=== PATIENT | female | born 1995 | race Caucasian/White ===

== ENCOUNTER → 2017-12-09 | Outpatient (CLI) | payer MEDICAID ==
[2017-12-09 08:58] LABS: BASO % 0.3 % (0.0-1.0); HEMATOCRIT 38.2 % (36.0-47.0); HEMOGLOBIN 12.6 g/dl (12.0-16.0); IMMATURE GRANULOCYTE % 0.8 % (0-3.0); LYMPH # 4.3 10^3/uL (1.5-6.5); LYMPH % 26.7 % (24.0-44.0); MEAN CORPUSCULAR HEMOGLOBIN 27.8 pg (27.0-33.0); MEAN CORPUSCULAR VOLUME 84.3 fl (80.0-96.0); NEUTROPHILS # 10.6 10^3/uL (1.8-7.7); NEUTROPHILS % 66.2 % (36.0-66.0); PLATELET COUNT, AUTOMATED 386 10^3/uL (150-450); RED BLOOD COUNT 4.53 10^6/uL (4.00-5.40); RED CELL DISTRIBUTION WIDTH 13.2 % (11.5-14.5); WHITE BLOOD COUNT 15.9 10^3/uL (4.0-10.0)
[2017-12-09 09:49] LABS: ALBUMIN 3.3 GM/DL (3.2-5.2); ALBUMIN/GLOBULIN RATIO 0.87 (1.00-1.93); ALKALINE PHOSPHATASE 82 U/L (45-117); ALT/SGPT 12 U/L (12-78); ANION GAP 11 MEQ/L (8-16); AST/SGOT 14 U/L (7-37); BILIRUBIN,TOTAL 0.4 MG/DL (0.2-1.0); BLOOD UREA NITROGEN 15 MG/DL (7-18); CARBON DIOXIDE LEVEL 24 MEQ/L (21-32); CHLORIDE LEVEL 103 MEQ/L (98-107); CHOLESTEROL LEVEL 200 MG/DL (<200); CHOLESTEROL RISK RATIO 4.347 (<5); CREATININE FOR GFR 0.75 MG/DL (0.55-1.30); GLOMERULAR FILTRATION RATE > 60.0 (>60); GLUCOSE, FASTING 134 MG/DL (70-100); HDL CHOLESTEROL 46 MG/DL (>40); LDL CHOLESTEROL 114.2 MG/DL (<100); NON-HDL-C 154 MG/DL; POTASSIUM SERUM 3.9 MEQ/L (3.5-5.1); SODIUM LEVEL 138 MEQ/L (136-145); THYROID STIMULATING HORMONE 0.516 uIU/ML (0.358-3.740); TOTAL PROTEIN 7.1 GM/DL (6.4-8.2); TRIGLYCERIDES LEVEL 199 MG/DL (<150)
[2017-12-09 10:15] LABS: ESTIMATED AVERAGE GLUCOSE 140 MG/DL (60-110); HEMOGLOBIN A1c 6.5 %
[2017-12-09 11:00] LABS: HIV 1&2 SCREEN CENTAUR NEGATIVE (NEGATIVE)
== END ==
LOC: M LAB 07:59
DX: K52.9 Noninfective gastroenteritis and colitis, unspecified (principal); K30 Functional dyspepsia; Z11.3 Encounter for screening for infections with a predominantly sexual mode of transmission; E11.29 Type 2 diabetes mellitus with other diabetic kidney complication; Z13.220 Encounter for screening for lipoid disorders; K21.9 Gastro-esophageal reflux disease without esophagitis
CPT/HCPCS: 93005

== ENCOUNTER → 2017-12-10 | Outpatient (REF) | payer MEDICAID ==
[2017-12-11 13:06] LABS: CREATININE, URINE 94.9 MG/DL; MALB URINE SIEMENS < 5.0 MG/L; MAU/CREAT RATIO 5.2 MCG/MG (0.0-30.0)
[2017-12-11 14:59] LABS: CHLAMYDIA DNA AMPLIFICATION NEGATIVE (NEGATIVE); GC DNA AMPLIFICATION NEGATIVE (NEGATIVE)
[2017-12-13 00:07] LABS: H PYLORI STOOL ANTIGEN Negative (Negative)
== END ==
LOC: M LAB REF 13:50
DX: E11.29 Type 2 diabetes mellitus with other diabetic kidney complication (principal); Z11.3 Encounter for screening for infections with a predominantly sexual mode of transmission
CPT/HCPCS: 82043

== ENCOUNTER 2018-03-18 12:09 | Inpatient (IN) | payer MEDICAID ==
[2018-03-18] MEDS: PANTOPRAZOLE 40MG INJ (PROTONIX) (C9113) IV (09:00)
[2018-03-18 13:23] LABS: ABG BASE EXCESS -1.5 (-2.0-2.0); ABG HCO3 20.1 MEQ/L (22.0-26.0); ABG O2 SATURATION 98.4 % (95.0-99.0); ABG PARTIAL PRESSURE CO2 26.3 mmHg (35.0-45.0); ABG PARTIAL PRESSURE O2 108.8 mmHg (75.0-100.0); ABG STANDARD HCO3 23.2 MEQ/L (22.0-26.0); ABG TOTAL CO2 20.9 MEQ/L (22.0-29.0); ABG pH (ARTERIAL) 7.502 UNITS (7.350-7.450)
[2018-03-18] MEDS: CHARCOAL ACTIVATED LIQUID 25 GM/120 ML BTL PO ×2 (13:36→21:04)
[2018-03-18] MEDS: NS 1,000 ML IV (13:36)
[2018-03-18 13:39] LABS: BASO % 0.2 % (0.0-1.0); HEMATOCRIT 39.4 % (36.0-47.0); HEMOGLOBIN 13.3 g/dl (12.0-15.5); IMMATURE GRANULOCYTE % 0.6 % (0-3.0); LYMPH # 3.1 10^3/uL (1.5-6.5); LYMPH % 16.6 % (24.0-44.0); MEAN CORPUSCULAR HEMOGLOBIN 27.8 pg (27.0-33.0); MEAN CORPUSCULAR HGB CONC 33.8 g/dl (32.0-36.5); MEAN CORPUSCULAR VOLUME 82.4 fl (80.0-96.0); MONO % 5.6 % (0.0-5.0); NEUTROPHILS # 14.4 10^3/uL (1.8-7.7); PLATELET COUNT, AUTOMATED 408 10^3/uL (150-450); RED BLOOD COUNT 4.78 10^6/uL (4.00-5.40); RED CELL DISTRIBUTION WIDTH 13.2 % (11.5-14.5); WHITE BLOOD COUNT 18.7 10^3/uL (4.0-10.0)
[2018-03-18 13:41] LABS: CONTROL LINE HCG INT CTR LINE PRESENT; HCG, SERUM QUALITATIVE NEGATIVE (NEGATIVE)
[2018-03-18 13:45] LABS: KETONE, URINE AUTO RFX NEGATIVE (NEGATIVE); LEUKOCYTE ESTERASE UR AUTO RFX 1+ (NEGATIVE); MUCUS, URINE RFX SMALL (NEGATIVE); NITRITE, URINE AUTO RFX NEGATIVE (NEGATIVE); RBC, URINE AUTO RFX 4 /HPF (0-3); SPECIFIC GRAVITY UR AUTO RFX 1.017 (1.002-1.035); SQUAM EPITHELIAL CELL UR AURFX 9 /HPF (0-6); WBC, URINE AUTO RFX 7 /HPF (0-3)
[2018-03-18] MEDS: ONDANSETRON 4MG/2ML VIAL (J2405) IV (13:47)
[2018-03-18 13:54] LABS: AMPHETAMINES LEVEL URINE NEGATIVE (NEGATIVE); BARBITURATES URINE NEGATIVE (NEGATIVE); BENZODIAZEPINES URINE NEGATIVE (NEGATIVE); CANNABINOIDS URINE NEGATIVE (NEGATIVE); COCAINE METABOLITE URINE NEGATIVE (NEGATIVE); METHADONE URINE NEGATIVE (NEGATIVE); OPIATES URINE NEGATIVE (NEGATIVE); PHENCYCLIDINE URINE NEGATIVE (NEGATIVE)
[2018-03-18 13:59] LABS: ALBUMIN 3.4 GM/DL (3.2-5.2); ALBUMIN/GLOBULIN RATIO 0.67 (1.00-1.93); ALKALINE PHOSPHATASE 115 U/L (45-117); ALT/SGPT 36 U/L (12-78); ANION GAP 10 MEQ/L (8-16); AST/SGOT 24 U/L (7-37); BILIRUBIN,DIRECT < 0.1 MG/DL (0.0-0.2); BILIRUBIN,TOTAL 0.2 MG/DL (0.2-1.0); BLOOD UREA NITROGEN 10 MG/DL (7-18); CALCIUM LEVEL 9.8 MG/DL (8.5-10.1); CARBON DIOXIDE LEVEL 20 MEQ/L (21-32); CHLORIDE LEVEL 108 MEQ/L (98-107); CPK CREATINE PHOSPHOKINASE 33 U/L (26-192); CREATININE FOR GFR 0.89 MG/DL (0.55-1.30); GLOMERULAR FILTRATION RATE > 60.0 (>60); GLUCOSE, FASTING 97 MG/DL (70-100); SALICYLATE LEVEL 42.4 MG/DL (5.0-30.0); SODIUM LEVEL 138 MEQ/L (136-145); TOTAL PROTEIN 8.5 GM/DL (6.4-8.2)
[2018-03-18 14:02] LABS: ACETAMINOPHEN LEVEL < 2.0 UG/ML (10.0-30.0); ETHYL ALCOHOL (ETHANOL) < 0.003 % (0.000-0.010)
[2018-03-18] MEDS: SODIUM BICARBONATE 8.4% INJ 50 ML SYRINGE IV ×2 (14:27)
[2018-03-18 14:54] LABS: OSMOLALITY SERUM 283 MOSM/KG (275-295)
[2018-03-18] MEDS: SODIUM BICARBONATE 100 MEQ in D5W 1,000 ML IV ×2 (14:55→15:40)
[2018-03-18 14:58] LABS: LACTIC ACID SEPSIS PROTOCOL 3.2 MMOL/L (0.4-2.0)
[2018-03-18 15:31] LABS: APPEARANCE, URINE CLEAR (CLEAR); BACTERIA, URINE AUTO NEGATIVE (NEGATIVE); BILIRUBIN, URINE AUTO NEGATIVE (NEGATIVE); BLOOD, URINE BLOOD 1+ (NEGATIVE); COLOR, URINE STRAW (YELLOW); GLUCOSE, URINE (UA) AUTO NEGATIVE (NEGATIVE); KETONE, URINE AUTO NEGATIVE (NEGATIVE); LEUKOCYTE ESTERASE, URINE AUTO NEGATIVE (NEGATIVE); NITRITE, URINE AUTO NEGATIVE (NEGATIVE); PROTEIN, URINE AUTO NEGATIVE (NEGATIVE); RBC, URINE AUTO 5 /HPF (0-3); SPECIFIC GRAVITY URINE AUTO 1.009 (1.002-1.035); SQUAMOUS EPITHELIAL CELL UR AU 0 /HPF (0-6); UROBILINOGEN, URINE AUTO 0.2 mg/dL (0.0-2.0); WBC, URINE AUTO 1 /HPF (0-3)
[2018-03-18 15:36] LABS: ABG BASE EXCESS -1.5 (-2.0-2.0); ABG HCO3 20.1 MEQ/L (22.0-26.0); ABG O2 SATURATION 98.4 % (95.0-99.0); ABG PARTIAL PRESSURE CO2 25.8 mmHg (35.0-45.0); ABG PARTIAL PRESSURE O2 113.3 mmHg (75.0-100.0); ABG STANDARD HCO3 23.3 MEQ/L (22.0-26.0); ABG TOTAL CO2 20.9 MEQ/L (22.0-29.0)
[2018-03-18 15:49] LABS: ANION GAP 10 MEQ/L (8-16); BLOOD UREA NITROGEN 10 MG/DL (7-18); CALCIUM LEVEL 8.9 MG/DL (8.5-10.1); CARBON DIOXIDE LEVEL 20 MEQ/L (21-32); CHLORIDE LEVEL 113 MEQ/L (98-107); GLOMERULAR FILTRATION RATE > 60.0 (>60); GLUCOSE, FASTING 127 MG/DL (70-100); SODIUM LEVEL 143 MEQ/L (136-145)
[2018-03-18 17:05] LABS: APPEARANCE, URINE CLEAR (CLEAR); BACTERIA, URINE AUTO NEGATIVE (NEGATIVE); BILIRUBIN, URINE AUTO NEGATIVE (NEGATIVE); BLOOD, URINE BLOOD 1+ (NEGATIVE); COLOR, URINE YELLOW (YELLOW); GLUCOSE, URINE (UA) AUTO NEGATIVE (NEGATIVE); KETONE, URINE AUTO NEGATIVE (NEGATIVE); LEUKOCYTE ESTERASE, URINE AUTO NEGATIVE (NEGATIVE); MUCUS, URINE SMALL (NEGATIVE); NITRITE, URINE AUTO NEGATIVE (NEGATIVE); PROTEIN, URINE AUTO NEGATIVE (NEGATIVE); RBC, URINE AUTO 4 /HPF (0-3); SPECIFIC GRAVITY URINE AUTO 1.013 (1.002-1.035); SQUAMOUS EPITHELIAL CELL UR AU 0 /HPF (0-6); UROBILINOGEN, URINE AUTO 0.2 mg/dL (0.0-2.0); WBC, URINE AUTO 2 /HPF (0-3)
[2018-03-18 17:40] LABS: ALBUMIN 3.1 GM/DL (3.2-5.2); ANION GAP 11 MEQ/L (8-16); BLOOD UREA NITROGEN 9 MG/DL (7-18); CALCIUM LEVEL 8.9 MG/DL (8.5-10.1); CARBON DIOXIDE LEVEL 20 MEQ/L (21-32); CHLORIDE LEVEL 112 MEQ/L (98-107); GLOMERULAR FILTRATION RATE > 60.0 (>60); GLUCOSE, FASTING 135 MG/DL (70-100); PHOSPHORUS LEVEL 3.3 MG/DL (2.5-4.9); POTASSIUM SERUM 3.4 MEQ/L (3.5-5.1); SALICYLATE LEVEL 53.3 MG/DL (5.0-30.0); SODIUM LEVEL 143 MEQ/L (136-145)
[2018-03-18 19:10] LABS: APPEARANCE, URINE CLEAR (CLEAR); BACTERIA, URINE AUTO NEGATIVE (NEGATIVE); BILIRUBIN, URINE AUTO NEGATIVE (NEGATIVE); BLOOD, URINE BLOOD NEGATIVE (NEGATIVE); COLOR, URINE STRAW (YELLOW); GLUCOSE, URINE (UA) AUTO 1+ mg/dL (NEGATIVE); KETONE, URINE AUTO NEGATIVE (NEGATIVE); LEUKOCYTE ESTERASE, URINE AUTO NEGATIVE (NEGATIVE); MUCUS, URINE SMALL (NEGATIVE); NITRITE, URINE AUTO NEGATIVE (NEGATIVE); PROTEIN, URINE AUTO NEGATIVE (NEGATIVE); RBC, URINE AUTO 1 /HPF (0-3); SQUAMOUS EPITHELIAL CELL UR AU 0 /HPF (0-6); UROBILINOGEN, URINE AUTO 0.2 mg/dL (0.0-2.0); WBC, URINE AUTO 6 /HPF (0-3)
[2018-03-18 19:14] LABS: LACTIC ACID SEPSIS PROTOCOL 3.3 MMOL/L (0.4-2.0)
[2018-03-18 19:27] LABS: ALBUMIN 3.1 GM/DL (3.2-5.2); ANION GAP 11 MEQ/L (8-16); BLOOD UREA NITROGEN 9 MG/DL (7-18); CALCIUM LEVEL 8.7 MG/DL (8.5-10.1); CARBON DIOXIDE LEVEL 20 MEQ/L (21-32); CHLORIDE LEVEL 112 MEQ/L (98-107); CREATININE FOR GFR 0.95 MG/DL (0.55-1.30); GLOMERULAR FILTRATION RATE > 60.0 (>60); GLUCOSE, FASTING 155 MG/DL (70-100); PHOSPHORUS LEVEL 3.2 MG/DL (2.5-4.9); POTASSIUM SERUM 3.4 MEQ/L (3.5-5.1); SALICYLATE LEVEL 55.9 MG/DL (5.0-30.0); SODIUM LEVEL 143 MEQ/L (136-145)
[2018-03-18] MEDS: SODIUM BICARBONATE 150 MEQ in D5W 1,000 ML IV (19:29)
[2018-03-18 19:34] LABS: ABG BASE EXCESS 1.6 (-2.0-2.0); ABG HCO3 22.3 MEQ/L (22.0-26.0); ABG O2 SATURATION 98.6 % (95.0-99.0); ABG PARTIAL PRESSURE CO2 24.8 mmHg (35.0-45.0); ABG PARTIAL PRESSURE O2 126.9 mmHg (75.0-100.0); ABG STANDARD HCO3 25.9 MEQ/L (22.0-26.0); ABG pH (ARTERIAL) 7.571 UNITS (7.350-7.450)
[2018-03-18] MEDS: KCL 10MEQ/100ML SWI (KRUN) 10 MEQ in APPROPRIATE DILUENT 1 EA IV ×4 (20:04→23:12)
[2018-03-18 21:38] LABS: ANION GAP 8 MEQ/L (8-16); BLOOD UREA NITROGEN 9 MG/DL (7-18); CALCIUM LEVEL 8.7 MG/DL (8.5-10.1); CARBON DIOXIDE LEVEL 24 MEQ/L (21-32); CHLORIDE LEVEL 112 MEQ/L (98-107); CREATININE FOR GFR 0.93 MG/DL (0.55-1.30); GLOMERULAR FILTRATION RATE > 60.0 (>60); GLUCOSE, FASTING 103 MG/DL (70-100); PHOSPHORUS LEVEL 3.8 MG/DL (2.5-4.9); POTASSIUM SERUM 3.3 MEQ/L (3.5-5.1); SALICYLATE LEVEL 47.8 MG/DL (5.0-30.0); SODIUM LEVEL 144 MEQ/L (136-145)
[2018-03-18 21:47] LABS: APPEARANCE, URINE HAZY (CLEAR); BACTERIA, URINE AUTO 1+ (NEGATIVE); BILIRUBIN, URINE AUTO NEGATIVE (NEGATIVE); BLOOD, URINE BLOOD NEGATIVE (NEGATIVE); COLOR, URINE YELLOW (YELLOW); GLUCOSE, URINE (UA) AUTO 1+ mg/dL (NEGATIVE); KETONE, URINE AUTO NEGATIVE (NEGATIVE); LEUKOCYTE ESTERASE, URINE AUTO NEGATIVE (NEGATIVE); MUCUS, URINE SMALL (NEGATIVE); NITRITE, URINE AUTO NEGATIVE (NEGATIVE); PROTEIN, URINE AUTO 2+ mg/dL (NEGATIVE); RBC, URINE AUTO 4 /HPF (0-3); SPECIFIC GRAVITY URINE AUTO 1.015 (1.002-1.035); SQUAMOUS EPITHELIAL CELL UR AU 0 /HPF (0-6); UROBILINOGEN, URINE AUTO 0.2 mg/dL (0.0-2.0); WBC, URINE AUTO 7 /HPF (0-3)
[2018-03-18 21:53] LABS: ABG BASE EXCESS 2.4 (-2.0-2.0); ABG HCO3 22.9 MEQ/L (22.0-26.0); ABG O2 SATURATION 98.6 % (95.0-99.0); ABG PARTIAL PRESSURE CO2 24.6 mmHg (35.0-45.0); ABG PARTIAL PRESSURE O2 122.3 mmHg (75.0-100.0); ABG STANDARD HCO3 26.6 MEQ/L (22.0-26.0); ABG TOTAL CO2 23.7 MEQ/L (22.0-29.0); ABG pH (ARTERIAL) 7.587 UNITS (7.350-7.450)
[2018-03-18 23:14] LABS: APPEARANCE, URINE CLEAR (CLEAR); BACTERIA, URINE AUTO NEGATIVE (NEGATIVE); BILIRUBIN, URINE AUTO NEGATIVE (NEGATIVE); BLOOD, URINE BLOOD NEGATIVE (NEGATIVE); COLOR, URINE YELLOW (YELLOW); GLUCOSE, URINE (UA) AUTO 1+ mg/dL (NEGATIVE); KETONE, URINE AUTO NEGATIVE (NEGATIVE); LEUKOCYTE ESTERASE, URINE AUTO NEGATIVE (NEGATIVE); MUCUS, URINE SMALL (NEGATIVE); NITRITE, URINE AUTO NEGATIVE (NEGATIVE); PROTEIN, URINE AUTO 2+ mg/dL (NEGATIVE); RBC, URINE AUTO 9 /HPF (0-3); SPECIFIC GRAVITY URINE AUTO 1.017 (1.002-1.035); SQUAMOUS EPITHELIAL CELL UR AU 0 /HPF (0-6); TRANSITIONAL EPITHELIAL AUTO 1 /HPF; UROBILINOGEN, URINE AUTO 0.2 mg/dL (0.0-2.0); WBC, URINE AUTO 11 /HPF (0-3)
[2018-03-18 23:24] LABS: ANION GAP 9 MEQ/L (8-16); BLOOD UREA NITROGEN 9 MG/DL (7-18); CALCIUM LEVEL 8.5 MG/DL (8.5-10.1); CARBON DIOXIDE LEVEL 23 MEQ/L (21-32); CHLORIDE LEVEL 110 MEQ/L (98-107); CREATININE FOR GFR 1.11 MG/DL (0.55-1.30); GLOMERULAR FILTRATION RATE > 60.0 (>60); GLUCOSE, FASTING 143 MG/DL (70-100); PHOSPHORUS LEVEL 3.1 MG/DL (2.5-4.9); POTASSIUM SERUM 3.3 MEQ/L (3.5-5.1); SALICYLATE LEVEL 40.1 MG/DL (5.0-30.0); SODIUM LEVEL 142 MEQ/L (136-145)
[2018-03-19] MEDS: KCL 10MEQ/100ML SWI (KRUN) 10 MEQ in APPROPRIATE DILUENT 1 EA IV ×7 (00:09→07:13)
[2018-03-19 00:34] LABS: ABG BASE EXCESS 3.8 (-2.0-2.0); ABG HCO3 24.3 MEQ/L (22.0-26.0); ABG O2 SATURATION 98.9 % (95.0-99.0); ABG PARTIAL PRESSURE CO2 25.2 mmHg (35.0-45.0); ABG PARTIAL PRESSURE O2 141.6 mmHg (75.0-100.0); ABG STANDARD HCO3 27.9 MEQ/L (22.0-26.0); ABG TOTAL CO2 25.1 MEQ/L (22.0-29.0)
[2018-03-19 00:35] LABS: ABG pH (ARTERIAL) 7.602 UNITS (7.350-7.450)
[2018-03-19] MEDS: SODIUM BICARBONATE 150 MEQ in D5W 1,000 ML IV (01:00)
[2018-03-19 01:06] LABS: VENOUS BASE EXCESS 5.2 (-2.0-2.0); VENOUS HCO3 26.5 MEQ/L (23.0-27.0); VENOUS O2 SATURATION 97.3 % (60.0-80.0); VENOUS PARTIAL PRESSURE CO2 28.6 mmHg (38.0-50.0); VENOUS PARTIAL PRESSURE O2 84.1 mmHg (30.0-50.0); VENOUS PH 7.584 UNITS (7.330-7.430); VENOUS STANDARD HCO3 29.2 MEQ/L; VENOUS TOTAL CO2 27.3 MEQ/L (24.0-28.0)
[2018-03-19 03:13] LABS: VENOUS PARTIAL PRESSURE CO2 30.1 mmHg (38.0-50.0); VENOUS PARTIAL PRESSURE O2 150.5 mmHg (30.0-50.0)
[2018-03-19 03:14] LABS: VENOUS BASE EXCESS 6.1 (-2.0-2.0); VENOUS HCO3 27.6 MEQ/L (23.0-27.0); VENOUS TOTAL CO2 28.5 MEQ/L (24.0-28.0)
[2018-03-19 03:23] LABS: APPEARANCE, URINE HAZY (CLEAR); BACTERIA, URINE AUTO NEGATIVE (NEGATIVE); BILIRUBIN, URINE AUTO NEGATIVE (NEGATIVE); BLOOD, URINE BLOOD NEGATIVE (NEGATIVE); COLOR, URINE YELLOW (YELLOW); GLUCOSE, URINE (UA) AUTO 1+ mg/dL (NEGATIVE); KETONE, URINE AUTO NEGATIVE (NEGATIVE); LEUKOCYTE ESTERASE, URINE AUTO NEGATIVE (NEGATIVE); NITRITE, URINE AUTO NEGATIVE (NEGATIVE); PROTEIN, URINE AUTO 3+ mg/dL (NEGATIVE); RBC, URINE AUTO 4 /HPF (0-3); SPECIFIC GRAVITY URINE AUTO 1.018 (1.002-1.035); SQUAMOUS EPITHELIAL CELL UR AU 0 /HPF (0-6); UROBILINOGEN, URINE AUTO 0.2 mg/dL (0.0-2.0); WBC, URINE AUTO 17 /HPF (0-3)
[2018-03-19 03:33] LABS: ALBUMIN 2.9 GM/DL (3.2-5.2); ANION GAP 10 MEQ/L (8-16); BLOOD UREA NITROGEN 10 MG/DL (7-18); CALCIUM LEVEL 7.7 MG/DL (8.5-10.1); CARBON DIOXIDE LEVEL 25 MEQ/L (21-32); CHLORIDE LEVEL 109 MEQ/L (98-107); CREATININE FOR GFR 1.05 MG/DL (0.55-1.30); GLOMERULAR FILTRATION RATE > 60.0 (>60); GLUCOSE, FASTING 110 MG/DL (70-100); PHOSPHORUS LEVEL 2.9 MG/DL (2.5-4.9); POTASSIUM SERUM 3.3 MEQ/L (3.5-5.1); SALICYLATE LEVEL 25.8 MG/DL (5.0-30.0); SODIUM LEVEL 144 MEQ/L (136-145)
[2018-03-19 03:36] LABS: LACTIC ACID SEPSIS PROTOCOL 1.3 MMOL/L (0.4-2.0)
[2018-03-19 07:20] LABS: AMORPHOUS SEDIMENT SMALL (NEGATIVE); APPEARANCE, URINE CLEAR (CLEAR); BACTERIA, URINE AUTO 1+ (NEGATIVE); BILIRUBIN, URINE AUTO NEGATIVE (NEGATIVE); BLOOD, URINE BLOOD NEGATIVE (NEGATIVE); COLOR, URINE YELLOW (YELLOW); GLUCOSE, URINE (UA) AUTO 1+ mg/dL (NEGATIVE); KETONE, URINE AUTO NEGATIVE (NEGATIVE); LEUKOCYTE ESTERASE, URINE AUTO NEGATIVE (NEGATIVE); NITRITE, URINE AUTO NEGATIVE (NEGATIVE); PROTEIN, URINE AUTO 3+ mg/dL (NEGATIVE); RBC, URINE AUTO 33 /HPF (0-3); SQUAMOUS EPITHELIAL CELL UR AU 0 /HPF (0-6); TRANSITIONAL EPITHELIAL AUTO 4 /HPF; UROBILINOGEN, URINE AUTO 0.2 mg/dL (0.0-2.0); WBC, URINE AUTO 25 /HPF (0-3)
[2018-03-19 07:50] LABS: BASO % 0.1 % (0.0-1.0); HEMATOCRIT 33.9 % (36.0-47.0); HEMOGLOBIN 11.5 g/dl (12.0-15.5); IMMATURE GRANULOCYTE % 0.4 % (0-3.0); LYMPH # 3.5 10^3/uL (1.5-6.5); LYMPH % 23.5 % (24.0-44.0); MEAN CORPUSCULAR HGB CONC 33.9 g/dl (32.0-36.5); MEAN CORPUSCULAR VOLUME 82.5 fl (80.0-96.0); MONO % 6.8 % (0.0-5.0); NEUTROPHILS # 10.4 10^3/uL (1.8-7.7); NEUTROPHILS % 69.2 % (36.0-66.0); PLATELET COUNT, AUTOMATED 363 10^3/uL (150-450); RED BLOOD COUNT 4.11 10^6/uL (4.00-5.40); RED CELL DISTRIBUTION WIDTH 13.5 % (11.5-14.5); WHITE BLOOD COUNT 15.1 10^3/uL (4.0-10.0)
[2018-03-19 07:59] LABS: ALBUMIN 2.9 GM/DL (3.2-5.2); ANION GAP 10 MEQ/L (8-16); BLOOD UREA NITROGEN 9 MG/DL (7-18); CALCIUM LEVEL 8.1 MG/DL (8.5-10.1); CARBON DIOXIDE LEVEL 24 MEQ/L (21-32); CHLORIDE LEVEL 107 MEQ/L (98-107); CREATININE FOR GFR 1.02 MG/DL (0.55-1.30); GLOMERULAR FILTRATION RATE > 60.0 (>60); GLUCOSE, FASTING 126 MG/DL (70-100); PHOSPHORUS LEVEL 2.7 MG/DL (2.5-4.9); POTASSIUM SERUM 3.5 MEQ/L (3.5-5.1); SALICYLATE LEVEL 16.7 MG/DL (5.0-30.0); SODIUM LEVEL 141 MEQ/L (136-145)
[2018-03-19] MEDS: PANTOPRAZOLE 40MG INJ (PROTONIX) (C9113) IV (08:57)
[2018-03-19] MEDS ORDERED: SITagliptin 50 MG TAB (JANUVIA) PO (09:00)
[2018-03-19] MEDS ORDERED: LISINOPRIL 5 MG TAB PO (09:00)
[2018-03-19] MEDS ORDERED: ATENOLOL 25 MG TAB PO (09:00)
[2018-03-19] MEDS ORDERED: DULoxetine 30 MG CAP (CYMBALTA) PO (09:00)
[2018-03-19] MEDS ORDERED: GLUCOSE 4 GM CHEW TABLET PO (09:30)
[2018-03-19] MEDS ORDERED: DEXTROSE 50% 50 ML SYRINGE IV (09:30)
[2018-03-19] MEDS ORDERED: GLUCAGON FOR INJ 1 MG VIAL (J1610) SC (09:30)
[2018-03-19] MEDS: POTASSIUM CHLORIDE 10 MEQ SR TABLET PO (10:25)
[2018-03-19 11:17] LABS: BEDSIDE GLUCOSE 114 MG/DL (70-105)
[2018-03-19] MEDS: HumaLOG INSULIN (NovoLOG) PER UNIT SC ×2 (11:20→17:13)
[2018-03-19] MEDS ORDERED: PILL CRUSHER/CUTTER 1 EACH XX (15:15)
[2018-03-19 17:10] LABS: BEDSIDE GLUCOSE 153 MG/DL (70-105)
[2018-03-19] MEDS ORDERED: HumaLOG INSULIN (NovoLOG) PER UNIT SC (21:00)
[2018-03-19] MEDS ORDERED: PRAZOSIN 1 MG CAP PO (21:00)
[2018-03-19] MEDS ORDERED: lamoTRIgine 25 MG TAB PO (21:00)
[2018-03-20] MEDS ORDERED: ATENOLOL 25 MG TAB PO (09:00)
[2018-03-20] MEDS ORDERED: POTASSIUM CHLORIDE 10 MEQ SR TABLET PO (09:00)
[2018-03-20] MEDS ORDERED: LISINOPRIL 5 MG TAB PO (09:00)
[2018-03-20] MEDS ORDERED: lamoTRIgine 100MG TAB PO ×2 (09:00)
[2018-03-20] MEDS ORDERED: SITagliptin 50 MG TAB (JANUVIA) PO ×2 (09:00)
[2018-03-20] MEDS ORDERED: PANTOPRAZOLE 40MG TAB (PROTONIX) PO (09:00)
[2018-03-20] MEDS ORDERED: DULoxetine 30 MG CAP (CYMBALTA) PO (09:00)
== END 2018-03-19 20:06 | DRG 812 ==
LOC: M ICU 16:07 → M ED 12:09 → M ED INP 16:07 → M ICU 17:56
DX: T39.092A Poisoning by salicylates, intentional self-harm, initial encounter (principal); E87.4 Mixed disorder of acid-base balance; F33.2 Major depressive disorder, recurrent severe without psychotic features; D51.0 Vitamin B12 deficiency anemia due to intrinsic factor deficiency; F34.1 Dysthymic disorder; F17.210 Nicotine dependence, cigarettes, uncomplicated; K21.9 Gastro-esophageal reflux disease without esophagitis; S51.812A Laceration without foreign body of left forearm, initial encounter; F43.10 Post-traumatic stress disorder, unspecified; F60.3 Borderline personality disorder; E28.2 Polycystic ovarian syndrome; E11.9 Type 2 diabetes mellitus without complications; I10 Essential (primary) hypertension; E66.9 Obesity, unspecified; Z88.8 Allergy status to other drugs, medicaments and biological substances; Z91.5 Personal history of self-harm; Z79.84 Long term (current) use of oral hypoglycemic drugs; X78.1XXA Intentional self-harm by knife, initial encounter; Y92.199 Unspecified place in other specified residential institution as the place of occurrence of the external cause; Y93.89 Activity, other specified; Z79.899 Other long term (current) drug therapy

== ENCOUNTER 2018-03-19 20:12 | Inpatient (IN) | payer MEDICARE, MEDICAID ==
[~2018-03-19 20:12] MED LIST: MAALOX 30 ML SUSP *UDC PO
[2018-03-19] MEDS: HumaLOG INSULIN (NovoLOG) PER UNIT SC (21:00)
[2018-03-19] MEDS: PRAZOSIN 1 MG CAP PO (21:00)
[2018-03-19] MEDS: lamoTRIgine 25 MG TAB PO (21:25)
[2018-03-19] MEDS: ACETAMINOPHEN TAB 650MG DOSE (2X325MG) PO (21:26)
[2018-03-20 06:33] LABS: BEDSIDE GLUCOSE 128 MG/DL (70-105)
[2018-03-20] MEDS: HumaLOG INSULIN (NovoLOG) PER UNIT SC ×4 (06:45→20:58)
[2018-03-20 07:59] LABS: ALBUMIN 2.8 GM/DL (3.2-5.2); ALBUMIN/GLOBULIN RATIO 0.64 (1.00-1.93); ALKALINE PHOSPHATASE 97 U/L (45-117); ALT/SGPT 26 U/L (12-78); ANION GAP 9 MEQ/L (8-16); AST/SGOT 15 U/L (7-37); BILIRUBIN,TOTAL 0.2 MG/DL (0.2-1.0); BLOOD UREA NITROGEN 14 MG/DL (7-18); CARBON DIOXIDE LEVEL 23 MEQ/L (21-32); CHLORIDE LEVEL 109 MEQ/L (98-107); CREATININE FOR GFR 0.97 MG/DL (0.55-1.30); GLOMERULAR FILTRATION RATE > 60.0 (>60); GLUCOSE, FASTING 179 MG/DL (70-100); SODIUM LEVEL 141 MEQ/L (136-145); TOTAL PROTEIN 7.2 GM/DL (6.4-8.2)
[2018-03-20] MEDS: SITagliptin 50 MG TAB (JANUVIA) PO (08:29)
[2018-03-20] MEDS: ATENOLOL 25 MG TAB PO (08:30)
[2018-03-20] MEDS: PANTOPRAZOLE 20 MG TAB PO (08:30)
[2018-03-20] MEDS: lamoTRIgine 100MG TAB PO (08:30)
[2018-03-20] MEDS: DULoxetine 30 MG CAP (CYMBALTA) PO (08:30)
[2018-03-20] MEDS: LISINOPRIL 5 MG TAB PO (08:30)
[2018-03-20] MEDS: MOM 30ML SUSPENSION UDC PO (08:30)
[2018-03-20] MEDS: DOCUSATE SODIUM 100 MG CAP PO ×2 (09:00→20:28)
[2018-03-20] MEDS ORDERED: DULoxetine 20 MG CAP (CYMBALTA) PO (09:00)
[2018-03-20] MEDS ORDERED: DULoxetine 30 MG CAP (CYMBALTA) PO (09:00)
[2018-03-20 12:44] LABS: BEDSIDE GLUCOSE 122 MG/DL (70-105)
[2018-03-20] MEDS: VENLAFAXINE **XR** 75MG CAPSULE PO (14:37)
[2018-03-20] MEDS: HALOPERIDOL 5 MG TAB PO (14:37)
[2018-03-20 17:16] LABS: BEDSIDE GLUCOSE 145 MG/DL (70-105)
[2018-03-20] MEDS: lamoTRIgine 25 MG TAB PO (20:28)
[2018-03-20] MEDS: PRAZOSIN 1 MG CAP PO (20:32)
[2018-03-20 20:38] LABS: BEDSIDE GLUCOSE 121 MG/DL (70-105)
[2018-03-21] MEDS: HumaLOG INSULIN (NovoLOG) PER UNIT SC ×4 (06:36→20:31)
[2018-03-21 06:38] LABS: BEDSIDE GLUCOSE 118 MG/DL (70-105)
[2018-03-21 07:40] LABS: HEMOGLOBIN 11.4 g/dl (12.0-15.5); MEAN CORPUSCULAR HEMOGLOBIN 27.9 pg (27.0-33.0); MEAN CORPUSCULAR HGB CONC 33.5 g/dl (32.0-36.5); MEAN CORPUSCULAR VOLUME 83.1 fl (80.0-96.0); PLATELET COUNT, AUTOMATED 344 10^3/uL (150-450); RED BLOOD COUNT 4.09 10^6/uL (4.00-5.40); RED CELL DISTRIBUTION WIDTH 13.4 % (11.5-14.5); WHITE BLOOD COUNT 12.7 10^3/uL (4.0-10.0)
[2018-03-21 08:05] LABS: ALBUMIN 2.9 GM/DL (3.2-5.2); ALBUMIN/GLOBULIN RATIO 0.76 (1.00-1.93); ALKALINE PHOSPHATASE 92 U/L (45-117); ALT/SGPT 27 U/L (12-78); ANION GAP 11 MEQ/L (8-16); AST/SGOT 19 U/L (7-37); BILIRUBIN,TOTAL 0.2 MG/DL (0.2-1.0); BLOOD UREA NITROGEN 19 MG/DL (7-18); CALCIUM LEVEL 9.3 MG/DL (8.5-10.1); CARBON DIOXIDE LEVEL 24 MEQ/L (21-32); CHLORIDE LEVEL 105 MEQ/L (98-107); CREATININE FOR GFR 0.84 MG/DL (0.55-1.30); GLOMERULAR FILTRATION RATE > 60.0 (>60); GLUCOSE, FASTING 117 MG/DL (70-100); POTASSIUM SERUM 4.4 MEQ/L (3.5-5.1); SODIUM LEVEL 140 MEQ/L (136-145); TOTAL PROTEIN 6.7 GM/DL (6.4-8.2)
[2018-03-21] MEDS: VENLAFAXINE **XR** 75MG CAPSULE PO (08:29)
[2018-03-21] MEDS: HALOPERIDOL 5 MG TAB PO (08:29)
[2018-03-21] MEDS: lamoTRIgine 100MG TAB PO (08:29)
[2018-03-21] MEDS: PANTOPRAZOLE 20 MG TAB PO (08:29)
[2018-03-21] MEDS: ATENOLOL 25 MG TAB PO (08:29)
[2018-03-21] MEDS: LISINOPRIL 5 MG TAB PO (08:29)
[2018-03-21] MEDS: SITagliptin 50 MG TAB (JANUVIA) PO (08:30)
[2018-03-21] MEDS: DOCUSATE SODIUM 100 MG CAP PO ×2 (08:31→20:30)
[2018-03-21] MEDS: DROSPIRENONE PO (11:08)
[2018-03-21] MEDS: ETHINYL ESTRADIOL PO (11:08)
[2018-03-21 12:03] LABS: BEDSIDE GLUCOSE 98 MG/DL (70-105)
[2018-03-21 17:10] LABS: BEDSIDE GLUCOSE 117 MG/DL (70-105)
[2018-03-21 20:28] LABS: BEDSIDE GLUCOSE 103 MG/DL (70-105)
[2018-03-21] MEDS: lamoTRIgine 25 MG TAB PO (20:30)
[2018-03-21] MEDS: PRAZOSIN 1 MG CAP PO (20:30)
[2018-03-22 06:23] LABS: BEDSIDE GLUCOSE 111 MG/DL (70-105)
[2018-03-22 07:11] LABS: HEMATOCRIT 35.7 % (36.0-47.0); HEMOGLOBIN 11.8 g/dl (12.0-15.5); MEAN CORPUSCULAR HEMOGLOBIN 27.7 pg (27.0-33.0); MEAN CORPUSCULAR HGB CONC 33.1 g/dl (32.0-36.5); MEAN CORPUSCULAR VOLUME 83.8 fl (80.0-96.0); RED BLOOD COUNT 4.26 10^6/uL (4.00-5.40); RED CELL DISTRIBUTION WIDTH 13.3 % (11.5-14.5); WHITE BLOOD COUNT 12.9 10^3/uL (4.0-10.0)
[2018-03-22 07:13] LABS: PLATELET COUNT, AUTOMATED 230 10^3/uL (150-450)
[2018-03-22] MEDS: HumaLOG INSULIN (NovoLOG) PER UNIT SC ×4 (07:30→20:35)
[2018-03-22] MEDS: lamoTRIgine 100MG TAB PO (08:54)
[2018-03-22] MEDS: ATENOLOL 25 MG TAB PO (08:54)
[2018-03-22] MEDS: PANTOPRAZOLE 40MG TAB (PROTONIX) PO (08:54)
[2018-03-22] MEDS: VENLAFAXINE **XR** 75MG CAPSULE PO (08:54)
[2018-03-22] MEDS: DOCUSATE SODIUM 100 MG CAP PO ×2 (08:54→20:43)
[2018-03-22] MEDS: HALOPERIDOL 5 MG TAB PO (08:54)
[2018-03-22] MEDS: LISINOPRIL 5 MG TAB PO (08:55)
[2018-03-22] MEDS: ETHINYL ESTRADIOL PO (08:55)
[2018-03-22] MEDS: DROSPIRENONE PO (08:55)
[2018-03-22] MEDS: SITagliptin 50 MG TAB (JANUVIA) PO (08:55)
[2018-03-22 11:37] LABS: BEDSIDE GLUCOSE 134 MG/DL (70-105)
[2018-03-22 17:10] LABS: BEDSIDE GLUCOSE 116 MG/DL (70-105)
[2018-03-22 20:36] LABS: BEDSIDE GLUCOSE 114 MG/DL (70-105)
[2018-03-22] MEDS: PRAZOSIN 1 MG CAP PO (20:42)
[2018-03-22] MEDS: lamoTRIgine 25 MG TAB PO (20:43)
[2018-03-23 06:23] LABS: BEDSIDE GLUCOSE 144 MG/DL (70-105)
[2018-03-23] MEDS: HumaLOG INSULIN (NovoLOG) PER UNIT SC ×4 (07:38→20:31)
[2018-03-23] MEDS: DOCUSATE SODIUM 100 MG CAP PO ×2 (08:32→20:30)
[2018-03-23] MEDS: PILL CRUSHER/CUTTER 1 EACH XX (08:33)
[2018-03-23] MEDS: lamoTRIgine 100MG TAB PO (08:33)
[2018-03-23] MEDS: LISINOPRIL 5 MG TAB PO (08:33)
[2018-03-23] MEDS: DROSPIRENONE PO (08:33)
[2018-03-23] MEDS: PANTOPRAZOLE 40MG TAB (PROTONIX) PO (08:33)
[2018-03-23] MEDS: ETHINYL ESTRADIOL PO (08:33)
[2018-03-23] MEDS: ATENOLOL 25 MG TAB PO (08:34)
[2018-03-23] MEDS: SITagliptin 50 MG TAB (JANUVIA) PO (08:34)
[2018-03-23 12:10] LABS: BEDSIDE GLUCOSE 104 MG/DL (70-105)
[2018-03-23 16:55] LABS: BEDSIDE GLUCOSE 149 MG/DL (70-105)
[2018-03-23] MEDS: traZODone 50 MG TAB PO (20:28)
[2018-03-23] MEDS: PRAZOSIN 1 MG CAP PO (20:28)
[2018-03-23] MEDS: HALOPERIDOL 5 MG TAB PO (20:29)
[2018-03-23] MEDS: lamoTRIgine 25 MG TAB PO (20:29)
[2018-03-23 20:33] LABS: BEDSIDE GLUCOSE 168 MG/DL (70-105)
[2018-03-24] MEDS: HumaLOG INSULIN (NovoLOG) PER UNIT SC ×4 (06:19→20:47)
[2018-03-24 06:20] LABS: BEDSIDE GLUCOSE 116 MG/DL (70-105)
[2018-03-24] MEDS: ETHINYL ESTRADIOL PO (08:58)
[2018-03-24] MEDS: DOCUSATE SODIUM 100 MG CAP PO ×2 (08:58→20:44)
[2018-03-24] MEDS: DROSPIRENONE PO (08:58)
[2018-03-24] MEDS: lamoTRIgine 100MG TAB PO (08:58)
[2018-03-24] MEDS: LISINOPRIL 5 MG TAB PO (08:59)
[2018-03-24] MEDS: ATENOLOL 25 MG TAB PO (08:59)
[2018-03-24] MEDS: PANTOPRAZOLE 40MG TAB (PROTONIX) PO (08:59)
[2018-03-24] MEDS: SITagliptin 50 MG TAB (JANUVIA) PO (09:00)
[2018-03-24] MEDS: PILL CRUSHER/CUTTER 1 EACH XX (09:01)
[2018-03-24 11:41] LABS: BEDSIDE GLUCOSE 116 MG/DL (70-105)
[2018-03-24 17:22] LABS: BEDSIDE GLUCOSE 130 MG/DL (70-105)
[2018-03-24] MEDS: lamoTRIgine 25 MG TAB PO (20:44)
[2018-03-24] MEDS: PRAZOSIN 1 MG CAP PO (20:44)
[2018-03-24] MEDS: HALOPERIDOL 5 MG TAB PO (20:45)
[2018-03-24] MEDS: MOM 30ML SUSPENSION UDC PO (20:47)
[2018-03-25 02:05] LABS: BEDSIDE GLUCOSE 120 MG/DL (70-105)
[2018-03-25 06:11] LABS: BEDSIDE GLUCOSE 105 MG/DL (70-105)
[2018-03-25] MEDS: HumaLOG INSULIN (NovoLOG) PER UNIT SC ×4 (06:11→20:12)
[2018-03-25] MEDS: ETHINYL ESTRADIOL PO (09:21)
[2018-03-25] MEDS: DROSPIRENONE PO (09:21)
[2018-03-25] MEDS: DOCUSATE SODIUM 100 MG CAP PO ×2 (09:23→20:13)
[2018-03-25] MEDS: ATENOLOL 25 MG TAB PO (09:23)
[2018-03-25] MEDS: LISINOPRIL 5 MG TAB PO (09:23)
[2018-03-25] MEDS: PANTOPRAZOLE 40MG TAB (PROTONIX) PO (09:23)
[2018-03-25] MEDS: SITagliptin 50 MG TAB (JANUVIA) PO (09:23)
[2018-03-25] MEDS: lamoTRIgine 100MG TAB PO (09:23)
[2018-03-25 11:48] LABS: BEDSIDE GLUCOSE 128 MG/DL (70-105)
[2018-03-25 16:56] LABS: BEDSIDE GLUCOSE 127 MG/DL (70-105)
[2018-03-25 20:11] LABS: BEDSIDE GLUCOSE 131 MG/DL (70-105)
[2018-03-25] MEDS: lamoTRIgine 25 MG TAB PO (20:13)
[2018-03-25] MEDS: PRAZOSIN 1 MG CAP PO (20:13)
[2018-03-25] MEDS: HALOPERIDOL 5 MG TAB PO (20:14)
[2018-03-26] MEDS: traZODone 50 MG TAB PO ×2 (00:10→20:58)
[2018-03-26] MEDS: HumaLOG INSULIN (NovoLOG) PER UNIT SC ×4 (06:14→20:59)
[2018-03-26 06:18] LABS: BEDSIDE GLUCOSE 126 MG/DL (70-105)
[2018-03-26] MEDS: ETHINYL ESTRADIOL PO (08:31)
[2018-03-26] MEDS: DROSPIRENONE PO (08:31)
[2018-03-26] MEDS: PILL CRUSHER/CUTTER 1 EACH XX ×2 (08:31→20:58)
[2018-03-26] MEDS: DOCUSATE SODIUM 100 MG CAP PO ×2 (08:31→20:57)
[2018-03-26] MEDS: ATENOLOL 25 MG TAB PO (08:32)
[2018-03-26] MEDS: PANTOPRAZOLE 40MG TAB (PROTONIX) PO (08:32)
[2018-03-26] MEDS: lamoTRIgine 100MG TAB PO (08:32)
[2018-03-26] MEDS: SITagliptin 50 MG TAB (JANUVIA) PO (08:32)
[2018-03-26] MEDS: LISINOPRIL 5 MG TAB PO (08:32)
[2018-03-26 11:47] LABS: BEDSIDE GLUCOSE 162 MG/DL (70-105)
[2018-03-26 16:49] LABS: BEDSIDE GLUCOSE 128 MG/DL (70-105)
[2018-03-26] MEDS: HALOPERIDOL 5 MG TAB PO (20:56)
[2018-03-26] MEDS: lamoTRIgine 25 MG TAB PO (20:56)
[2018-03-26] MEDS: PRAZOSIN 1 MG CAP PO (20:58)
[2018-03-26 20:59] LABS: BEDSIDE GLUCOSE 161 MG/DL (70-105)
[2018-03-27 06:30] LABS: BEDSIDE GLUCOSE 133 MG/DL (70-105)
[2018-03-27] MEDS: HumaLOG INSULIN (NovoLOG) PER UNIT SC ×3 (07:33→15:02)
[2018-03-27] MEDS: lamoTRIgine 100MG TAB PO (09:50)
[2018-03-27] MEDS: PANTOPRAZOLE 40MG TAB (PROTONIX) PO (09:50)
[2018-03-27] MEDS: SITagliptin 50 MG TAB (JANUVIA) PO (09:50)
[2018-03-27] MEDS: DOCUSATE SODIUM 100 MG CAP PO (09:50)
[2018-03-27] MEDS: LISINOPRIL 5 MG TAB PO (09:50)
[2018-03-27] MEDS: DROSPIRENONE PO (09:51)
[2018-03-27] MEDS: ETHINYL ESTRADIOL PO (09:51)
[2018-03-27] MEDS: ATENOLOL 25 MG TAB PO (09:51)
[2018-03-27 11:39] LABS: BEDSIDE GLUCOSE 169 MG/DL (70-105)
== END 2018-03-27 11:55 | disposition home or self-care (01) | DRG 885 ==
LOC: M PSY 20:12
PROVIDERS: Psychiatry & Neurology Psychiatry
DX: F33.2 Major depressive disorder, recurrent severe without psychotic features (principal); E11.9 Type 2 diabetes mellitus without complications; I10 Essential (primary) hypertension; F43.10 Post-traumatic stress disorder, unspecified; F60.3 Borderline personality disorder; K59.00 Constipation, unspecified; M54.5 Low back pain; J30.9 Allergic rhinitis, unspecified; K21.9 Gastro-esophageal reflux disease without esophagitis; E28.2 Polycystic ovarian syndrome; E66.9 Obesity, unspecified; Z68.38 Body mass index [BMI] 38.0-38.9, adult; F17.210 Nicotine dependence, cigarettes, uncomplicated; Z81.8 Family history of other mental and behavioral disorders; Z91.5 Personal history of self-harm; Z88.8 Allergy status to other drugs, medicaments and biological substances; Z79.84 Long term (current) use of oral hypoglycemic drugs; Z62.810 Personal history of physical and sexual abuse in childhood; Z62.811 Personal history of psychological abuse in childhood; R21 Rash and other nonspecific skin eruption; S51.812D Laceration without foreign body of left forearm, subsequent encounter; X78.9XXD Intentional self-harm by unspecified sharp object, subsequent encounter; Y92.009 Unspecified place in unspecified non-institutional (private) residence as the place of occurrence of the external cause; Z79.899 Other long term (current) drug therapy

== ENCOUNTER 2018-04-08 18:45 | Inpatient (IN) | payer MEDICAID, MEDICARE ==
[2018-04-08 20:31] LABS: HEMATOCRIT 39.4 % (36.0-47.0); HEMOGLOBIN 12.9 g/dl (12.0-15.5); MEAN CORPUSCULAR HEMOGLOBIN 28.2 pg (27.0-33.0); MEAN CORPUSCULAR HGB CONC 32.7 g/dl (32.0-36.5); PLATELET COUNT, AUTOMATED 471 10^3/uL (150-450); RED BLOOD COUNT 4.58 10^6/uL (4.00-5.40); RED CELL DISTRIBUTION WIDTH 13.9 % (11.5-14.5); WHITE BLOOD COUNT 19.5 10^3/uL (4.0-10.0)
[2018-04-08 20:37] LABS: CONTROL LINE HCG INT CTR LINE PRESENT; HCG, SERUM QUALITATIVE NEGATIVE (NEGATIVE)
[2018-04-08 20:44] LABS: AMPHETAMINES LEVEL URINE NEGATIVE (NEGATIVE); BARBITURATES URINE NEGATIVE (NEGATIVE); BENZODIAZEPINES URINE NEGATIVE (NEGATIVE); CANNABINOIDS URINE NEGATIVE (NEGATIVE); COCAINE METABOLITE URINE NEGATIVE (NEGATIVE); METHADONE URINE NEGATIVE (NEGATIVE); OPIATES URINE NEGATIVE (NEGATIVE); PHENCYCLIDINE URINE NEGATIVE (NEGATIVE)
[2018-04-08 20:59] LABS: ALBUMIN 3.2 GM/DL (3.2-5.2); ALBUMIN/GLOBULIN RATIO 0.73 (1.00-1.93); ALKALINE PHOSPHATASE 88 U/L (45-117); ALT/SGPT 14 U/L (12-78); ANION GAP 11 MEQ/L (8-16); AST/SGOT 12 U/L (7-37); BILIRUBIN,DIRECT < 0.1 MG/DL (0.0-0.2); BILIRUBIN,TOTAL 0.1 MG/DL (0.2-1.0); BLOOD UREA NITROGEN 17 MG/DL (7-18); CALCIUM LEVEL 9.8 MG/DL (8.5-10.1); CARBON DIOXIDE LEVEL 24 MEQ/L (21-32); CHLORIDE LEVEL 105 MEQ/L (98-107); CREATININE FOR GFR 0.67 MG/DL (0.55-1.30); GLOMERULAR FILTRATION RATE > 60.0 (>60); GLUCOSE, FASTING 106 MG/DL (70-100); POTASSIUM SERUM 4.1 MEQ/L (3.5-5.1); SALICYLATE LEVEL 2.8 MG/DL (5.0-30.0); SODIUM LEVEL 140 MEQ/L (136-145); THYROID STIMULATING HORMONE 0.776 uIU/ML (0.358-3.740); TOTAL PROTEIN 7.6 GM/DL (6.4-8.2)
[2018-04-08 21:06] LABS: ACETAMINOPHEN LEVEL < 2.0 UG/ML (10.0-30.0); ETHYL ALCOHOL (ETHANOL) < 0.003 % (0.000-0.010)
[2018-04-08] MEDS ORDERED: MAALOX 30 ML SUSP *UDC PO ×2 (23:00)
[2018-04-08] MEDS ORDERED: ACETAMINOPHEN TAB 650MG DOSE (2X325MG) PO ×2 (23:00)
[2018-04-08] MEDS ORDERED: MOM 30ML SUSPENSION UDC PO ×2 (23:00)
[2018-04-09] MEDS: HALOPERIDOL 5 MG TAB PO ×4 (00:11→20:27)
[2018-04-09] MEDS: traZODone 50 MG TAB PO ×4 (00:11→20:27)
[2018-04-09 06:26] LABS: BEDSIDE GLUCOSE 106 MG/DL (70-105)
[2018-04-09] MEDS: metFORMIN (GLUCOPHAGE) 1000 MG TABLET PO ×4 (09:16→17:01)
[2018-04-09] MEDS: lamoTRIgine 100MG TAB PO ×2 (09:17)
[2018-04-09] MEDS: LISINOPRIL 5 MG TAB PO ×2 (09:53)
[2018-04-09] MEDS: ATENOLOL 25 MG TAB PO ×2 (09:53)
[2018-04-09 16:47] LABS: BEDSIDE GLUCOSE 112 MG/DL (70-105)
[2018-04-09] MEDS: PILL CRUSHER/CUTTER 1 EACH XX ×2 (20:27)
[2018-04-09] MEDS: lamoTRIgine 25 MG TAB PO ×2 (20:27)
[2018-04-09] MEDS: PRAZOSIN 1 MG CAP PO ×2 (20:29)
[2018-04-10 05:54] LABS: BEDSIDE GLUCOSE 120 MG/DL (70-105)
[2018-04-10 07:03] LABS: HEMATOCRIT 38.2 % (36.0-47.0); HEMOGLOBIN 12.4 g/dl (12.0-15.5); MEAN CORPUSCULAR HEMOGLOBIN 28.2 pg (27.0-33.0); MEAN CORPUSCULAR HGB CONC 32.5 g/dl (32.0-36.5); MEAN CORPUSCULAR VOLUME 86.8 fl (80.0-96.0); PLATELET COUNT, AUTOMATED 381 10^3/uL (150-450); RED CELL DISTRIBUTION WIDTH 13.8 % (11.5-14.5); WHITE BLOOD COUNT 12.4 10^3/uL (4.0-10.0)
[2018-04-10 07:04] LABS: ADD MANUAL DIFFER YES; DIFF SLIDE NUMBER 66; POSITIVE DIFF POS FLAG; POSITIVE MORPH POS FLAG
[2018-04-10 07:06] LABS: REASON FOR REVIEW WBC/LEUKEMIA/BLAST; SLIDE REVIEW Report; SOURCE PERIPHERAL SMEAR
[2018-04-10 07:18] LABS: LYMPHOCYTES 41 % (16-52); MONOCYTES 5 % (0-8); NEUTROPHILS 54 % (35-75); PLATELET ESTIMATE NORMAL (NORMAL)
[2018-04-10] MEDS: lamoTRIgine 100MG TAB PO ×2 (08:54)
[2018-04-10] MEDS: LISINOPRIL 5 MG TAB PO ×2 (08:54)
[2018-04-10] MEDS: metFORMIN (GLUCOPHAGE) 1000 MG TABLET PO ×2 (08:55)
[2018-04-10] MEDS: ATENOLOL 25 MG TAB PO ×2 (08:56)
[2018-04-10] MEDS ORDERED: [UNRECOGNIZED DRUG - OTHER] PO ×2 (09:00)
== END 2018-04-10 14:25 | disposition home or self-care (01) | DRG 751 ==
LOC: M ED 18:45 → M ED INP 21:28 → M PSY 22:49
DX: F33.2 Major depressive disorder, recurrent severe without psychotic features (principal); D51.3 Other dietary vitamin B12 deficiency anemia; I10 Essential (primary) hypertension; E11.9 Type 2 diabetes mellitus without complications; E28.2 Polycystic ovarian syndrome; F43.10 Post-traumatic stress disorder, unspecified; F60.3 Borderline personality disorder; E66.9 Obesity, unspecified; F17.210 Nicotine dependence, cigarettes, uncomplicated; J30.9 Allergic rhinitis, unspecified; Z62.810 Personal history of physical and sexual abuse in childhood; Z91.5 Personal history of self-harm; Z79.84 Long term (current) use of oral hypoglycemic drugs; Z88.8 Allergy status to other drugs, medicaments and biological substances; Z81.8 Family history of other mental and behavioral disorders; Z68.38 Body mass index [BMI] 38.0-38.9, adult; Z79.899 Other long term (current) drug therapy

== ENCOUNTER 2018-05-07 19:18 | Inpatient (IN) | payer MEDICARE, MEDICAID ==
[2018-05-07 20:01] LABS: CONTROL LINE HCG INT CTR LINE PRESENT; HCG, SERUM QUALITATIVE NEGATIVE (NEGATIVE)
[2018-05-07 20:10] LABS: HEMATOCRIT 41.8 % (36.0-47.0); HEMOGLOBIN 13.8 g/dl (12.0-15.5); MEAN CORPUSCULAR VOLUME 84.8 fl (80.0-96.0); PLATELET COUNT, AUTOMATED 423 10^3/uL (150-450); RED BLOOD COUNT 4.93 10^6/uL (4.00-5.40); RED CELL DISTRIBUTION WIDTH 13.5 % (11.5-14.5); WHITE BLOOD COUNT 17.3 10^3/uL (4.0-10.0)
[2018-05-07 20:19] LABS: ALBUMIN 3.4 GM/DL (3.2-5.2); ALBUMIN/GLOBULIN RATIO 0.79 (1.00-1.93); ALKALINE PHOSPHATASE 92 U/L (45-117); ALT/SGPT 13 U/L (12-78); ANION GAP 12 MEQ/L (8-16); AST/SGOT 13 U/L (7-37); BILIRUBIN,DIRECT < 0.1 MG/DL (0.0-0.2); BILIRUBIN,TOTAL 0.1 MG/DL (0.2-1.0); BLOOD UREA NITROGEN 16 MG/DL (7-18); CARBON DIOXIDE LEVEL 24 MEQ/L (21-32); CHLORIDE LEVEL 105 MEQ/L (98-107); CREATININE FOR GFR 0.98 MG/DL (0.55-1.30); GLOMERULAR FILTRATION RATE > 60.0 (>60); GLUCOSE, FASTING 114 MG/DL (70-100); SALICYLATE LEVEL 2.5 MG/DL (5.0-30.0); SODIUM LEVEL 141 MEQ/L (136-145); THYROID STIMULATING HORMONE 0.689 uIU/ML (0.358-3.740); TOTAL PROTEIN 7.7 GM/DL (6.4-8.2)
[2018-05-07 20:22] LABS: ACETAMINOPHEN LEVEL < 2.0 UG/ML (10.0-30.0); ETHYL ALCOHOL (ETHANOL) < 0.003 % (0.000-0.010)
[2018-05-07] MEDS: NS 1,000 ML IV (21:13)
[2018-05-07 21:15] LABS: LACTIC ACID SEPSIS PROTOCOL 1.6 MMOL/L (0.4-2.0)
[2018-05-07 21:18] LABS: AMPHETAMINES LEVEL URINE NEGATIVE (NEGATIVE); BARBITURATES URINE NEGATIVE (NEGATIVE); BENZODIAZEPINES URINE NEGATIVE (NEGATIVE); CANNABINOIDS URINE NEGATIVE (NEGATIVE); COCAINE METABOLITE URINE NEGATIVE (NEGATIVE); METHADONE URINE NEGATIVE (NEGATIVE); OPIATES URINE NEGATIVE (NEGATIVE); PHENCYCLIDINE URINE NEGATIVE (NEGATIVE)
[2018-05-08] MEDS ORDERED: MAALOX 30 ML SUSP *UDC PO (03:00)
[2018-05-08] MEDS ORDERED: ACETAMINOPHEN TAB 650MG DOSE (2X325MG) PO (03:00)
[2018-05-08] MEDS ORDERED: MOM 30ML SUSPENSION UDC PO (03:00)
[2018-05-08 10:47] LABS: KETONE, URINE AUTO RFX NEGATIVE (NEGATIVE); LEUKOCYTE ESTERASE UR AUTO RFX NEGATIVE (NEGATIVE); MUCUS, URINE RFX SMALL (NEGATIVE); NITRITE, URINE AUTO RFX NEGATIVE (NEGATIVE); RBC, URINE AUTO RFX 1 /HPF (0-3); SPECIFIC GRAVITY UR AUTO RFX 1.009 (1.002-1.035); SQUAM EPITHELIAL CELL UR AURFX 0 /HPF (0-6); WBC, URINE AUTO RFX 4 /HPF (0-3)
[2018-05-08] MEDS: ATENOLOL 25 MG TAB PO (11:27)
[2018-05-08] MEDS: metFORMIN (GLUCOPHAGE) 1000 MG TABLET PO ×2 (11:27→17:02)
[2018-05-08] MEDS: LISINOPRIL 5 MG TAB PO (11:28)
[2018-05-08] MEDS: lamoTRIgine 100MG TAB PO (11:35)
[2018-05-08 16:29] LABS: BEDSIDE GLUCOSE 114 MG/DL (70-105)
[2018-05-08] MEDS: busPIRone 10 MG TAB PO (20:14)
[2018-05-08] MEDS: lamoTRIgine 25 MG TAB PO (20:14)
[2018-05-08] MEDS: traZODone 50 MG TAB PO (20:15)
[2018-05-08] MEDS: diphenhydrAMINE 50 MG CAP PO (20:15)
[2018-05-08] MEDS: HALOPERIDOL 2 MG TAB PO (20:15)
[2018-05-08] MEDS: PRAZOSIN 1 MG CAP PO (20:16)
[2018-05-09 06:22] LABS: BEDSIDE GLUCOSE 108 MG/DL (70-105)
[2018-05-09] MEDS: metFORMIN (GLUCOPHAGE) 1000 MG TABLET PO ×2 (07:35→17:06)
[2018-05-09 08:45] LABS: HEMATOCRIT 37.4 % (36.0-47.0); HEMOGLOBIN 12.2 g/dl (12.0-15.5); MEAN CORPUSCULAR HEMOGLOBIN 27.6 pg (27.0-33.0); MEAN CORPUSCULAR HGB CONC 32.6 g/dl (32.0-36.5); MEAN CORPUSCULAR VOLUME 84.6 fl (80.0-96.0); PLATELET COUNT, AUTOMATED 356 10^3/uL (150-450); RED BLOOD COUNT 4.42 10^6/uL (4.00-5.40); RED CELL DISTRIBUTION WIDTH 13.6 % (11.5-14.5); WHITE BLOOD COUNT 11.5 10^3/uL (4.0-10.0)
[2018-05-09] MEDS: busPIRone 10 MG TAB PO ×2 (09:27→20:23)
[2018-05-09] MEDS: LISINOPRIL 5 MG TAB PO (09:27)
[2018-05-09] MEDS: lamoTRIgine 100MG TAB PO (09:27)
[2018-05-09] MEDS: ATENOLOL 25 MG TAB PO (09:28)
[2018-05-09 16:45] LABS: BEDSIDE GLUCOSE 138 MG/DL (70-105)
[2018-05-09] MEDS: PRAZOSIN 1 MG CAP PO (20:23)
[2018-05-09] MEDS: diphenhydrAMINE 50 MG CAP PO (20:23)
[2018-05-09] MEDS: HALOPERIDOL 2 MG TAB PO (20:23)
[2018-05-09] MEDS: lamoTRIgine 25 MG TAB PO (20:23)
[2018-05-09] MEDS: traZODone 50 MG TAB PO (20:23)
[2018-05-10] MEDS: metFORMIN (GLUCOPHAGE) 1000 MG TABLET PO ×2 (07:21→17:16)
[2018-05-10 07:31] LABS: HEMATOCRIT 38.7 % (36.0-47.0); HEMOGLOBIN 12.6 g/dl (12.0-15.5); MEAN CORPUSCULAR HEMOGLOBIN 27.7 pg (27.0-33.0); MEAN CORPUSCULAR HGB CONC 32.6 g/dl (32.0-36.5); MEAN CORPUSCULAR VOLUME 85.1 fl (80.0-96.0); PLATELET COUNT, AUTOMATED 362 10^3/uL (150-450); RED BLOOD COUNT 4.55 10^6/uL (4.00-5.40); RED CELL DISTRIBUTION WIDTH 13.4 % (11.5-14.5); WHITE BLOOD COUNT 12.8 10^3/uL (4.0-10.0)
[2018-05-10] MEDS: LISINOPRIL 5 MG TAB PO (09:07)
[2018-05-10] MEDS: busPIRone 10 MG TAB PO ×2 (09:08→21:08)
[2018-05-10] MEDS: lamoTRIgine 100MG TAB PO (09:08)
[2018-05-10] MEDS: ATENOLOL 25 MG TAB PO (09:08)
[2018-05-10 16:53] LABS: BEDSIDE GLUCOSE 128 MG/DL (70-105)
[2018-05-10] MEDS: diphenhydrAMINE 50 MG CAP PO (21:08)
[2018-05-10] MEDS: traZODone 50 MG TAB PO (21:08)
[2018-05-10] MEDS: HALOPERIDOL 2 MG TAB PO (21:08)
[2018-05-10] MEDS: lamoTRIgine 25 MG TAB PO (21:08)
[2018-05-10] MEDS: PRAZOSIN 1 MG CAP PO (21:09)
[2018-05-11 06:32] LABS: BEDSIDE GLUCOSE 101 MG/DL (70-105)
[2018-05-11] MEDS: metFORMIN (GLUCOPHAGE) 1000 MG TABLET PO ×2 (07:19→17:04)
[2018-05-11] MEDS ORDERED: ETHINYL ESTRADIOL PO (09:00)
[2018-05-11] MEDS ORDERED: DROSPIRENONE PO (09:00)
[2018-05-11] MEDS: lamoTRIgine 100MG TAB PO (09:54)
[2018-05-11] MEDS: busPIRone 10 MG TAB PO ×2 (09:54→21:28)
[2018-05-11] MEDS: ATENOLOL 25 MG TAB PO (09:55)
[2018-05-11] MEDS: LISINOPRIL 5 MG TAB PO (09:55)
[2018-05-11 16:31] LABS: BEDSIDE GLUCOSE 150 MG/DL (70-105)
[2018-05-11] MEDS: HALOPERIDOL 2 MG TAB PO (21:28)
[2018-05-11] MEDS: lamoTRIgine 25 MG TAB PO (21:28)
[2018-05-11] MEDS: diphenhydrAMINE 50 MG CAP PO (21:28)
[2018-05-11] MEDS: traZODone 50 MG TAB PO (21:29)
[2018-05-11] MEDS: PRAZOSIN 1 MG CAP PO (21:29)
[2018-05-12] MEDS: metFORMIN (GLUCOPHAGE) 1000 MG TABLET PO ×2 (08:53→17:14)
[2018-05-12] MEDS: busPIRone 10 MG TAB PO ×2 (08:54→20:16)
[2018-05-12] MEDS: ATENOLOL 25 MG TAB PO (08:54)
[2018-05-12] MEDS: lamoTRIgine 100MG TAB PO (08:54)
[2018-05-12] MEDS: LISINOPRIL 5 MG TAB PO (08:54)
[2018-05-12] MEDS: LORazepam 1 MG TAB PO (12:07)
[2018-05-12 17:17] LABS: BEDSIDE GLUCOSE 95 MG/DL (70-105)
[2018-05-12] MEDS: HALOPERIDOL 2 MG TAB PO (20:16)
[2018-05-12] MEDS: traZODone 50 MG TAB PO (20:16)
[2018-05-12] MEDS: PRAZOSIN 1 MG CAP PO (20:16)
[2018-05-12] MEDS: lamoTRIgine 25 MG TAB PO (20:16)
[2018-05-12] MEDS: diphenhydrAMINE 50 MG CAP PO (20:16)
[2018-05-13 06:40] LABS: BEDSIDE GLUCOSE 114 MG/DL (70-105)
[2018-05-13 06:44] LABS: HEMATOCRIT 39.6 % (36.0-47.0); HEMOGLOBIN 13.1 g/dl (12.0-15.5); MEAN CORPUSCULAR HEMOGLOBIN 27.9 pg (27.0-33.0); MEAN CORPUSCULAR HGB CONC 33.1 g/dl (32.0-36.5); MEAN CORPUSCULAR VOLUME 84.3 fl (80.0-96.0); PLATELET COUNT, AUTOMATED 342 10^3/uL (150-450); RED CELL DISTRIBUTION WIDTH 13.2 % (11.5-14.5); WHITE BLOOD COUNT 13.4 10^3/uL (4.0-10.0)
[2018-05-13] MEDS: metFORMIN (GLUCOPHAGE) 1000 MG TABLET PO (08:56)
[2018-05-13] MEDS: busPIRone 10 MG TAB PO (08:57)
[2018-05-13] MEDS: lamoTRIgine 100MG TAB PO (08:57)
[2018-05-13] MEDS: LISINOPRIL 5 MG TAB PO (08:57)
[2018-05-13] MEDS: ATENOLOL 25 MG TAB PO (08:57)
== END 2018-05-13 12:07 | disposition home or self-care (01) | DRG 885 ==
LOC: M PSY 05-09 19:25 → M ED INP 05-08 02:49 → M PSY 05-08 03:58 → M ED 19:18
DX: F33.9 Major depressive disorder, recurrent, unspecified (principal); E11.9 Type 2 diabetes mellitus without complications; E66.9 Obesity, unspecified; K21.9 Gastro-esophageal reflux disease without esophagitis; E28.2 Polycystic ovarian syndrome; I10 Essential (primary) hypertension; F43.10 Post-traumatic stress disorder, unspecified; F60.3 Borderline personality disorder; T39.312A Poisoning by propionic acid derivatives, intentional self-harm, initial encounter; Y92.009 Unspecified place in unspecified non-institutional (private) residence as the place of occurrence of the external cause; D51.3 Other dietary vitamin B12 deficiency anemia; J30.9 Allergic rhinitis, unspecified; Z68.39 Body mass index [BMI] 39.0-39.9, adult; F17.210 Nicotine dependence, cigarettes, uncomplicated; Z88.8 Allergy status to other drugs, medicaments and biological substances; Z62.810 Personal history of physical and sexual abuse in childhood; Z81.8 Family history of other mental and behavioral disorders; Z79.84 Long term (current) use of oral hypoglycemic drugs; Z79.899 Other long term (current) drug therapy